=== PATIENT | female | born 1965 | race Caucasian/White ===

== ENCOUNTER 2018-06-17 02:12 | Emergency (ER) | payer BC, SELFPAY ==
[2018-06-17 02:13] VITALS: BP 181/97; PULSE 60; RESP 16; TEMP 36.7; O2SAT 96; BMI 28.2
--- NOTE | 2018-06-17 02:23 | ED.VISSUMM ---
- ER Visit Summary Date of Service: 06/17/18 Chief Complaint: Lump under right jaw History of Present Illness: The patient is a 52 F who awoke with a lump under her right jaw which scared her so she came here. She did take 2 Motrin and states the swelling has gone down. She otherwise is without complaint. No fevers chest pain shortness of breath nausea vomiting rashes headaches. Physical Examination: Afebrile blood pressure 181/97 vitals otherwise normal Moist mucous membranes Patient has severe gingivitis with ulcerative lesions especially along the right lower teeth and in particular of the right mandibular canine Patient has a mobile lymph node under the right mandible as well as some anterior cervical lymphadenopathy Heart regular rate and rhythm Test Results: Not indicated Emergency Department Course and Treatment: Patient's findings are consistent with acute necrotizing ulcerative gingivitis as well as reactive lymphadenopathy. She was given a dose of clindamycin here as well as a prescription for the same and was discharged home. I stressed the importance of follow-up with a dentist. She understands to return for new or worsening symptoms and was discharged home. Treatment Plan: [] Disposition: Discharge Impression: Acute necrotizing ulcerative gingivitis Reactive lymphadenopathy This note was generated with onefinestay dictation software. It may contain incorrect words, spelling, and punctuation that were not noted in review of the chart prior to signing ED Disposition - Plan for ED Patient: Referrals: Marty Lewis MD [Primary Care Provider] -
--- NOTE | 2018-06-17 02:26 | ED.DEP ---
ED Disposition - Plan for ED Patient: Instructions: ED Trench Mouth Prescriptions: Clindamycin [Cleocin] 300 mg PO TID #60 cap Referrals: Marty Lewis MD [Primary Care Provider] -
[2018-06-17] MEDS: Clindamycin HCl 150 MG Capsule 300 MG PO (02:44)
[2018-06-17 02:45] VITALS: RESP 16
== END 2018-06-17 02:45 | disposition home or self-care (01) ==
LOC: ED 02:33
PROVIDERS: Emergency Provider Emergency Medicine; Family Provider Family Medicine; PCP Family Medicine
DX: A69.1 Other Vincent's infections (principal); R59.0 Localized enlarged lymph nodes; I10 Essential (primary) hypertension; Z72.0 Tobacco use
CPT/HCPCS: 99283

== ENCOUNTER 2020-02-18 09:59 | Emergency (ER) | payer BC, SELFPAY ==
[2020-02-18 09:59] VITALS: BP 141/73; PULSE 65; RESP 17; TEMP 36.1; O2SAT 97; BMI 25.9
--- NOTE | 2020-02-18 10:10 | CT_ITS ---
STUDY: CT BRAIN WITHOUT CONTRAST REASON FOR EXAM: Female, 54 years old. HEADACHE WITH NAUSEA AND VOMITING STARTED TUESDAY RADIATION DOSAGE (If Supplied By Facility): CTDIvol = ( 44.99 ) mGy, DLP = ( 779.24 ) mGycm TECHNIQUE: Transaxial CT imaging of the brain was performed without administration of intravenous contrast material. Individualized dose optimization techniques were used for this CT. COMPARISON: Comparison is made with prior study dated 02/10/2016. FINDINGS: Normal soft tissue structures. Normal calvarium. Once again, there is mild degree of predominantly frontal cerebral atrophy with widening of the extra-axial spaces. Normal white matter tracts of the cerebral hemispheres. Normal basal ganglia and thalami. Normal brainstem. There is mild cerebellar atrophy. There is no intracranial hemorrhage. There are no findings of an acute ischemic infarction. Normal visualized paranasal sinuses. CT/Brain/Head without Contrast IMPRESSION: Chronic involutional changes of the brain. Stable examination. Electronically Signed: Horace Smiley, at 11:40 EST , Service support ,
--- NOTE | 2020-02-18 10:11 | EKG12_ITS ---
Test Reason : HEADACHE Blood Pressure : / mmHG Vent. Rate : 050 BPM Atrial Rate : 050 BPM P-R Int : 136 ms QRS Dur : 100 ms QT Int : 478 ms P-R-T Axes : 049 038 095 degrees QTc Int : 435 ms Sinus bradycardia Nonspecific ST and T wave abnormality Abnormal ECG Confirmed by KANDI MURRY, TORREY ([id number]), order editor VINOD ACKERMAN ([id number]) on 02/20/2020 8:13:21 AM Referred By: ARNEL Confirmed By:TORREY CHAU MD
--- NOTE | 2020-02-18 10:12 | CT_ITS ---
STUDY: CT CERVICAL SPINE WITHOUT CONTRAST REASON FOR EXAM: Female, 54 years old. HEADACHE,N/V X 4 DAYS RADIATION DOSAGE (If Supplied By Facility): CTDIvol = ( 17.91 ) mGy, DLP = ( 336.47 ) mGycm TECHNIQUE: High resolution transaxial imaging was performed without contrast material. Sagittal and coronal images were reconstructed. Individualized dose optimization techniques were used for this CT. COMPARISON: None FINDINGS: Normal craniovertebral junction. Normal anterior atlantoaxial articulation. Normal odontoid process. There is straightening of the normal cervical lordosis. Normal vertebral bodies and posterior osseous elements. C2-3: Normal endplates. Normal disc height and morphology. Normal central canal and intervertebral neuroforamina. C3-4: Normal endplates. Normal disc height and morphology. Normal central canal and intervertebral neuroforamina. C4-5: Mild degree of disc space narrowing. Anterior spondylosis. Uncovertebral arthrosis. C5-6: Mild degree of disc space narrowing. Spondylosis. Mild degree of the uncovertebral arthrosis. C6-7: Normal endplates. Normal disc height and morphology. Normal central canal and intervertebral neuroforamina. C7-T1: Normal endplates. Normal disc height and morphology. Normal central canal and intervertebral neuroforamina. Calcification of the carotid bifurcations bilaterally. CT/Spine Cervical without Contras IMPRESSION: Multilevel degenerative changes, as described above. Electronically Signed: Horace Smiley, at 11:17 EST , Service support ,
--- NOTE | 2020-02-18 10:18 | ED.VIS.GEN ---
History of Present Illness Chief Complaint: Headache Informant: Patient Narrative: 54-year-old female with past medical history of hypertension presents with headache. States it has been intermittent for the past 4 days. States it is left-sided and radiates from the front to the occipital region. States that she has had intermittent nausea with some vomiting. States she also has pain in her left shoulder and neck. Radiates down her left arm. States this is aching and intermittent. Somewhat worse with movement. Denies any fever, chills, cough, vision change, head injury. States that she does have a remote history of migraines but has not had one for some time. Is not currently on prophylactic medication for this issue. Past Medical History - Allergies and Home Meds Allergies/Adverse Reactions: Allergies cephalexin monohydrate [From Keflex] Allergy (Mild, Verified 02/18/20 09:59) Rash acetaminophen [From Percocet] Allergy (Verified 02/18/20 09:59) Rash hydrocodone bitartrate [From Vicodin] Allergy (Verified 02/18/20 09:59) Rash oxycodone HCl [From Percocet] Allergy (Verified 02/18/20 09:59) Rash Primary Care Physician: Marty Lewis MD [Primary Care Provider] - Prior records reviewed: Yes Past Medical History: - - HTN Surgical History: - - ablation Lives: Spouse/ Significant Other Smoking Status: Current every day smoker Alcohol: None Drugs: None Review of Systems General: Denies: Chills, Fever, Sweats Eyes: Denies: Visual changes - bilaterally, Diplopia ENT: Denies: Rhinorrhea, Sore throat Cardiovascular: Denies: Chest pain, Palpitations Respiratory: Denies: Dyspnea, Cough, Dyspnea on exertion Gastrointestinal: Denies: Abdominal pain, Nausea, Vomiting, Diarrhea, Melena, Hematochezia Genitourinary: Denies: Dysuria, Hematuria, Frequency Musculoskeletal: Reports: Myalgias, Arthralgias, Neck pain. Denies: Back pain, Extremity Pain Skin: Denies: Rash, Wounds Neurological: Reports: Headache. Denies: Weakness, Numbness Physical Exam Vital Signs/Narrative: Vital Signs Temp Pulse Resp BP Pulse Ox 02/18/20 09:59 96.9 F L 65 17 141/73 H 97 Inital Vital Signs reviewed: Yes General: Well nourished, Well developed, No Acute Distress Head: Normocephalic, Atraumatic Eyes: Perrl, EOMI ENT: Moist mucous membranes, No rhinorrhea Neck: Supple, Nontender, - - Left paracervical TTP with muscle spasm. Cardiovascular: Regular rate, Regular rhythm, No murmurs Respiratory: No distress, CTA bilaterally, Chest nontender Abdomen: Soft, Nontender, Nondistended, Normal bowel sounds Back: Nontender, Normal Inspection Extremities: Nontender, No edema Skin: Normal color, No rash Neurological: Alert, Oriented x3, Cranial nerves II-XII grossly intact, Normal Strength, Normal Sensation Psychological: Normal affect, Normal Mood Diagnostic/Tx/Re-eval Chest X-Ray - ED: 1 View, 2 View, Read by ED Physician, Read by Radiologist, Normal Clinical Impression(s) from Imaging Studies Brain CT 02/18/20 10:10 IMPRESSION: Chronic involutional changes of the brain. Stable examination. Electronically Signed: Horace Smiley, at 11:40 EST , Service support , Cervical Spine CT 02/18/20 10:12 IMPRESSION: Multilevel degenerative changes, as described above. Electronically Signed: Horace Smiley, at 11:17 EST , Service support , Chest X-Ray 02/18/20 11:09 IMPRESSION: Normal x-ray examination of the chest. Electronically Signed: Horace Smiley, at 11:20 EST , Service support , Laboratory Data 02/18/20 02/18/20 02/18/20 10:19 10:25 10:25 WBC 4.7 RBC 4.12 L Hgb 14.9 Hct 42.8 MCV 103.9 H MCH 36.2 H MCHC 34.8 RDW Std Deviation 45.4 H RDW Coeff of Daron 11.8 Plt Count 62 L MPV 11.3 Immature Gran % (Auto) 0.200 Neut % (Auto) 51.2 Lymph % (Auto) 38.3 [place] % (Auto) 8.2 Eos % (Auto) 1.7 Baso % (Auto) 0.4 Absolute Neuts (auto) 2.4 Absolute Lymphs (auto) 1.78 Nucleated RBC % 0 Sodium 138 Potassium 2.9 L Chloride 101 Carbon Dioxide 32.0 Anion Gap 5 BUN 10 Creatinine 0.63 Estim Creat Clear Calc 90.20 Est GFR (MDRD) Af Amer 127 Est GFR (MDRD) Non-Af 105 BUN/Creatinine Ratio 15.8 Glucose 142 H Calcium 8.0 L Magnesium Total Bilirubin 0.80 AST 128 H ALT 128 H Alkaline Phosphatase 105 Troponin I < 0.015 Total Protein 7.2 Albumin 3.1 L Globulin 4.1 Albumin/Globulin Ratio 0.8 L Urine Color Yellow Urine Clarity Clear Urine pH 8.0 Ur Specific [place] 1.010 Urine Protein 15 H Urine Glucose (UA) Normal Urine Ketones 5 H Urine Occult Blood Negative Urine Nitrite Negative Urine Bilirubin 1 H Urine Urobilinogen 4 H Ur Leukocyte Esterase 100 H Urine RBC 0 SEEN Urine WBC 0-5 SEEN Ur Squamous Epith Cells 10-25 SEEN Urine Bacteria 1+ Urine Mucus 2+ 02/18/20 10:25 WBC RBC Hgb Hct MCV MCH MCHC RDW Std Deviation RDW Coeff of Daron Plt Count MPV Immature Gran % (Auto) Neut % (Auto) Lymph % (Auto) [place] % (Auto) Eos % (Auto) Baso % (Auto) Absolute Neuts (auto) Absolute Lymphs (auto) Nucleated RBC % Sodium Potassium Chloride Carbon Dioxide Anion Gap BUN Creatinine Estim Creat Clear Calc Est GFR (MDRD) Af Amer Est GFR (MDRD) Non-Af BUN/Creatinine Ratio Glucose Calcium Magnesium 2.1 Total Bilirubin AST ALT Alkaline Phosphatase Troponin I Total Protein Albumin Globulin Albumin/Globulin Ratio Urine Color Urine Clarity Urine pH Ur Specific [place] Urine Protein Urine Glucose (UA) Urine Ketones Urine Occult Blood Urine Nitrite Urine Bilirubin Urine Urobilinogen Ur Leukocyte Esterase Urine RBC Urine WBC Ur Squamous Epith Cells Urine Bacteria Urine Mucus - Rhythm Strip Rhythm Strip: Sinus bradycardia Rate: 50 Ectopy: None - EKG Initial EKG Interpretation: Sinus Bradycardia - Sinus bradycardia 50 bpm. WA interval of 136 ms. QTC of [address] changes. Flattened T waves. No significant change from previous on 02/10/2016. - Medical Decision Making Patient appears well and nontoxic. No focal neurologic deficit. No signs of meningismus. CT head and neck negative. Chest x-ray interpreted by myself shows no significant cardiomegaly or infiltrates. Radiology concurs. Lab work does show a hypokalemia which was replaced by mouth and will be given potassium replacement at home. Patient was given Toradol and cyclobenzaprine for a likely musculoskeletal neck pain. Patient will be given these medications for home. Asked to return for new or worsening symptoms. Asked to follow-up with primary care. Patient agreeable and discharged home in stable condition. Impression: 1. Headache 2. Cervicalgia 3. Hypokalemia ED Disposition - Plan for ED Patient: Disposition: Home or Assisted Living Instructions: ED Headache Unspecified Prescriptions: cycloBENZAPRine HCl [Flexeril] 5 mg PO TID PRN #10 tab PRN Reason: Muscle Spasm Prescription Printed Naproxen [Naprosyn] 500 mg PO BID #14 tab Prescription Printed Potassium Chloride 20 meq PO DAILY #5 tab.er.prt Prescription Printed Referrals: Marty Lewis MD [Primary Care Provider] - 2 Days
[2020-02-18 10:27] LABS: Red Blood Cells-Urine 0 SEEN /hpf (0-5)
[2020-02-18 10:31] LABS: Color, Urine Yellow (Yellow); Glucose, Dipstick Normal (Normal); Ketone-Dipstick 5 mg/dl (Negative); Leukocyte Esterase-Dipstick 100 /ul (Negative); Nitrite-Dipstick Negative (Negative); Occult Blood-Urine Negative /ul (Negative); Protein-Dipstick 15 mg/dl (Negative); Urine Clarity Clear (Clear); Urine Urobilinogen 4 mg/dl (Normal)
[2020-02-18 10:37] LABS: Absolute Lymphocyte Count 1.78 X10^3/uL (0.83-4.51); Absolute Neutrophil Count 2.4 X10^3/uL (2.0-7.7); Basophil# 0.02 X10^3/uL; Basophil% 0.4 % (0-1); Eosinophil# 0.08 X10^3/uL; Eosinophils% 1.7 % (0-5); Hematocrit 42.8 % (37-47); Hemoglobin 14.9 g/dL (12.0-15.0); Lymphocyte # 1.78 X10^3/ul (4.0); Lymphocyte % 38.3 % (19-41); Mean Corp Hgb Conc 34.8 g/dL (32-36); Mean Corpuscular Hgb 36.2 pg (27.0-32.0); Mean Corpuscular Volume 103.9 fL (81-99); Mean Platelet Vol. 11.3 fl (6.2-12.0); Monocyte# 0.38 X10^3/uL; Monocyte% 8.2 % (0-10); NRBC Flagged by Analyzer 0 % (0-5); Neutrophil # 2.38 X10^3/uL (2.7-7.7); Neutrophil % 51.2 % (47-70); POSITIVE COUNT YES; Platelet Count 62 K/mm3 (150-450); RBC Distribution Width CV 11.8 % (11.6-14.6); RBC Distribution Width SD 45.4 fl (35.1-43.9); Red Blood Count 4.12 M/mm3 (4.2-5.4); White Blood Count 4.7 K/mm3 (4.4-11.0)
[2020-02-18 10:42] LABS: Urine Bilirubin Dipstick 1 mg/dL (Negative)
[2020-02-18 10:48] LABS: Bacteria 1+ /hpf (None Seen); Mucous, Urine 2+ /hpf (<or=2+); Squamous Epithelial Cells - UA 10-25 SEEN /hpf (5-10); White Blood Cells 0-5 SEEN /hpf (0-5)
[2020-02-18] MEDS: Ondansetron 4 MG/2 ML Vial IV (10:50)
[2020-02-18 10:51] LABS: ALB/GLOB Ratio 0.8 RATIO (0.9-2.4); AST(SGOT) 128 U/L (15-37); Alanine Aminotransfer ALT/SGPT 128 U/L (13-56); Albumin, Serum 3.1 g/dL (3.2-5.0); Alkaline Phosphatase 105 U/L (45-117); Anion Gap 5 (5-15); BUN 10 mg/dL (7-18); BUN/Creat Ratio 15.8 RATIO (10-20); Chloride 101 mmol/L (98-107); Creatinine, Serum 0.63 mg/dL (0.55-1.02); EST Glomerular Filtration Rate 105 mL/min (>60); Est Glom Filt Rate - Afr Amer 127 mL/min (>60); Globulin 4.1 g/dL (2.2-4.2); Glucose 142 mg/dL (74-106); Potassium 2.9 mmol/L (3.5-5.1); Protein, Total 7.2 g/dL (6.4-8.2); Sodium Level 138 mmol/L (136-145)
--- NOTE | 2020-02-18 11:09 | RAD_ITS ---
STUDY: X-RAY CHEST REASON FOR EXAM: Female, 54 years old. Pt c/o headache, nausea, vomiting started 3 days ago TECHNIQUE: Single AP portable view of the chest. COMPARISON: Comparison is made with prior study dated 02/10/2016. FINDINGS: EKG electrodes are seen. The lungs are clear and expanded. There is no demonstrated pleural abnormality. Normal size heart. Normal mediastinum and ahsan. Normal visualized pulmonary arteries. There is atherosclerotic calcification of the aortic arch with tortuosity. There are mild degenerative changes of the visualized thoracic spine. Normal visualized ribs, clavicles, and shoulders. There is no demonstrated abnormality of the visualized soft tissue structures of the upper abdomen. RAD/Chest 1 View (Portable) IMPRESSION: Normal x-ray examination of the chest. Electronically Signed: Horace Smiley, at 11:20 EST , Service support ,
[2020-02-18 11:22] LABS: Magnesium 2.1 mg/dL (1.6-2.6)
[2020-02-18] MEDS: Ketorolac 15 MG/ML Vial IV (12:19)
[2020-02-18 12:21] VITALS: BP 128/95; PULSE 51; RESP 14; O2SAT 97
[2020-02-18 12:46] VITALS: BP 138/95; PULSE 50; RESP 16; O2SAT 96
[2020-02-18] MEDS: cycloBENZAPRine HCl 5 MG TABLET PO (12:46)
== END 2020-02-18 12:53 | disposition home or self-care (01) ==
PROVIDERS: Emergency Provider Emergency Medicine; PCP Family Medicine
DX: R51.9 Headache, unspecified (principal); M54.2 Cervicalgia; E87.6 Hypokalemia; I10 Essential (primary) hypertension; F17.200 Nicotine dependence, unspecified, uncomplicated
CPT/HCPCS: 70450; 71045; 72125; 80053; 81001; 83735; 84484; 85025; 87635; 93005; 96374; 96375; 99285; U0005; A4216; J2405; U0003

== ENCOUNTER 2021-07-15 21:02 | Emergency (ER) | payer BC, SELFPAY ==
[2021-07-15 21:03] VITALS: BP 135/95; PULSE 82; RESP 18; TEMP 36.1; O2SAT 95; BMI 27.4
--- NOTE | 2021-07-15 21:13 | CT_ITS ---
STUDY: CT ABDOMEN AND PELVIS WITHOUT CONTRAST REASON FOR EXAM: Female, 55 years old. abd/back pain RADIATION DOSAGE (If Supplied By Facility): CTDIvol = ( 9.29 ) mGy, DLP = ( 452.49 ) mGycm TECHNIQUE: Transaxial images were obtained from the dome of the diaphragm to the symphysis pubis without oral contrast, and without intravenous contrast. Sagittal and coronal images were reconstructed. Individualized dose optimization techniques were used for this CT. COMPARISON: None. FINDINGS: There is minor atelectasis within the dependent portion of the lungs.. The visualized portions of the heart are within normal limits. Normal liver. Tiny hyperattenuated foci within the distended gallbladder possibly representing polyps or poorly calcified stones.. Normal spleen. Normal pancreas. Normal bilateral adrenal glands. Normal right kidney. Normal left kidney. Normal visualized stomach. Nonspecific ileus with diffuse fecal retention in the colon. No evidence for small bowel obstruction.. Diverticular changes of the colon without evidence for acute diverticulitis Appendix not visualized consistent with appendectomy Atherosclerotic changes of the aorta without evidence for aneurysm. Normal inferior vena cava. Normal retroperitoneum. Incompletely distended thick-walled bladder likely of no significance Normal abdominal wall. Normal osseous structures. CT/Abdomen/Pelvis without Cont IMPRESSION: Mildly distended gallbladder with tiny polyps or poorly calcified stones. Ultrasound would be helpful for further evaluation if clinically warranted Nonspecific ileus with diffuse fecal retention in colon. Diverticular changes of colon without evidence for acute diverticulitis Electronically Signed: Mahendra Murray MD at 22:32 EDT ,
--- NOTE | 2021-07-15 21:15 | EDS_ITS ---
HPI History of Present Illness Chief Complaint: General Illness Informant: patient Onset/Context/Timing Onset: Month(s) Narrative Narrative: Presents with multiple complaints. She complains of intermittent back and abdominal pain over the past 3 months. She states she will occasionally feel nauseated and have vomiting. She will occasionally have diarrhea. She complains of not being able to eat chicken, hamburger, or pork over the past 3 months because it does not taste right. She states that her eyes feel itchy. All symptoms have been ongoing for months. She has not seen her physician about this. She states she has been going to [facility] who is doing biopsies of her cervix. She does admit to recently being on an antibiotic for UTI. She is not sure if the symptoms are resolved or not. PFSH PFSH Medical History no medical history no medical history Home Medications hydrochlorothiazide 25 mg PO DAILY #30 tablet 05/17/14 [Rx Last Taken Unknown] Potassium Chloride 20 meq PO DAILY #5 tab.er.prt 02/18/20 [Rx Last Taken Unknown] celecoxib 200 mg PO DINNER 02/18/20 [History Last Taken Unknown] cyclobenzaprine 5 mg PO TID PRN #10 tab 02/18/20 [Rx Last Taken Unknown] naproxen 500 mg PO BID #14 tab 02/18/20 [Rx Last Taken Unknown] polyethylene glycol 3350 [Miralax] 17 g PO DAILY #119 g 07/15/21 [Rx Last Taken Unknown] Allergy/AdvReac Type Severity Reaction Status Date / Time cephalexin monohydrate Allergy Mild Rash Verified 07/15/21 21:05 [From Keflex] acetaminophen [From Percocet] Allergy Rash Verified 07/15/21 21:05 hydrocodone bitartrate Allergy Rash Verified 07/15/21 21:05 [From Vicodin] oxycodone HCl [From Percocet] Allergy Rash Verified 07/15/21 21:05 Surgical History History of appendectomy Social History Smoking Status: Current every day smoker tobacco type: cigarettes ROS ROS ED Constitutional Constitutional ED: Denies chills or fever(s) Eyes Eyes: Reports other Details: Itchy eyes ; Denies change in vision ENT ENT ED: Denies sore throat Cardiovascular Cardiovascular: Denies chest pain Respiratory/Chest Respiratory/Chest: Denies cough or dyspnea Gastrointestinal Gastrointestinal: Reports abdominal pain, diarrhea, nausea and vomiting Genitourinary Genitourinary ED: Denies dysuria Musculoskeletal Musculoskeletal: Reports back pain Integumentary Denies rash Neurologic Neurologic: Denies headache(s) or weakness Allergic/Immunologic Allergic/Immunologic ED: Denies urticaria EXAM Physical Exam Const Vital Signs: 07/15/21 21:03 07/15/21 21:51 Temperature 97 F L Temperature Source Temporal Pulse Rate 82 Respiratory Rate 18 Respiratory Effort Normal Blood Pressure 135/95 H Blood Pressure Mean 108 Pulse Ox 95 Oxygen Delivery Method Room Air Positive well nourished and well developed General Appearance ED: well developed HEENT Reports moist mucous membranes Eyes PERRL and EOMs intact bilaterally Neck supple Chest Wall inspection of chest normal and palpation of chest normal Resp normal respiratory effort and clear to auscultation bilaterally Cardio regular rate and regular rhythm GI normal to inspection, nondistended, normoactive bowel sounds and non-tender Palpation: soft Back/Spine Back/Spine Narrative: No reproducible thoracic or lumbar tenderness. No CVA tenderness. Extremity normal to inspection Neuro oriented x3 Sensorium / Orientation: alert Psych mental status grossly normal Skin no rashes or lesions noted MDM MDM MDM Narrative Medical decision making narrative: Patient is given Toradol and IV fluids. Lab work, urinalysis, CT flank obtained. COVID swab ordered. Lab Data Attestation: I reviewed the patient's lab results. Labs: Laboratory Results - last 24 hr 07/15/21 07/15/21 07/15/21 21:40 21:40 21:50 WBC 3.9 L RBC 4.12 L Hgb 14.8 Hct 41.9 MCV 101.7 H MCH 35.9 H MCHC 35.3 RDW Std Deviation 45.3 H RDW Coeff of Daron 12.0 Plt Count 62 L MPV 10.9 Immature Gran % (Auto) 0.300 Neut % (Auto) 50.4 Lymph % (Auto) 37.8 [place] % (Auto) 9.2 Eos % (Auto) 1.8 Baso % (Auto) 0.5 Absolute Neuts (auto) 2.0 Absolute Lymphs (auto) 1.48 Nucleated RBC % 0 Platelet Estimate MOD DEC Plt Morphology Comment LARGE RBC Morphology N CHROM Anisocytosis RARE Macrocytosis RARE Sodium 137 Potassium 3.1 L Chloride 100 Carbon Dioxide 33.0 H Anion Gap 4 L BUN 6 L Creatinine 0.45 L Estim Creat Clear Calc 124.85 Est GFR (MDRD) Af Amer 186 Est GFR (MDRD) Non-Af 154 BUN/Creatinine Ratio 13.3 Glucose 105 Calcium 8.2 L Total Bilirubin 1.20 H Direct Bilirubin 0.51 H AST 90 H ALT 70 H Alkaline Phosphatase 100 Total Protein 7.0 Albumin 2.9 L Globulin 4.1 Urine Color Yellow Urine Clarity Clear Urine pH 7.0 Ur Specific [place] 1.005 Urine Protein Negative Urine Glucose (UA) Normal Urine Ketones Negative Urine Occult Blood Negative Urine Nitrite Negative Urine Bilirubin Negative Urine Urobilinogen Normal Ur Leukocyte Esterase Negative Urine RBC 0 SEEN Urine WBC 0 SEEN Ur Squamous Epith Cells 0-5 SEEN Urine Bacteria 1+ Urine Mucus 0 SEEN Rapid COVID: Negative Radiography Diagnostic Testing: Clinical Impression(s) from Imaging Studies Abdomen/Pelvis CT 07/15/21 21:13 IMPRESSION: Mildly distended gallbladder with tiny polyps or poorly calcified stones. Ultrasound would be helpful for further evaluation if clinically warranted Nonspecific ileus with diffuse fecal retention in colon. Diverticular changes of colon without evidence for acute diverticulitis Electronically Signed: Mahendra Murray MD at 22:32 EDT , Treatment and Re-Evaluation Narrative: Repeat evaluation patient resting comfortably. CBC reveals mildly low white count at 3.9. Platelet count is low at 62,000 but this is consistent with her prior values. Chemistry studies significant for potassium of 3.1. Total bili is 1.2, direct bili 0.51, AST 90, ALT 71. LFTs are elevated, but slightly improved when compared to prior values. Urinalysis reveals no acute infection. CT flank reveals mildly distended gallbladder. She has no focal tenderness to this area. Nonspecific ileus with diffuse fecal retention is noted. I will write her for MiraLAX to help clean her out. I did recommend she follow-up with her PCP for further evaluation. She will be given a work note for today only. Discharge Plan Triage Chief Complaint: General Illness ED Provider: Suyapa Bobby Dx/Rx/DC Orders Clinical Impression: Abdominal pain, Hypokalemia, Constipation Instructions: ED Constipation (Adult), ED Pain, Acute, Uncertain Cause Prescriptions: New polyethylene glycol 3350 [Miralax] 17 gram/dose powder 17 g PO DAILY Qty: 119 RF: 0 No Action hydrochlorothiazide 25 MG tablet 25 mg PO DAILY Qty: 30 RF: 0 celecoxib 100 MG capsule 200 mg PO DINNER RF: 0 Potassium Chloride 20 MEQ Tab.Er.Prt 20 meq PO DAILY Qty: 5 RF: 0 cyclobenzaprine 10 MG tablet 5 mg PO TID PRN (Reason: Muscle Spasm) Qty: 10 RF: 0 naproxen 500 MG tablet 500 mg PO BID Qty: 14 RF: 0 Stand Alone Forms: ED Work / School Excuse Primary Care Provider: Marty Lewis Referrals: Marty Lewis MD [Primary Care Provider] - 1-2 Weeks Disposition Disposition: Home, Self Care
[2021-07-15] MEDS: 0.9% Normal Saline 1,000 ML 150 ML IV (21:41)
[2021-07-15] MEDS: Ketorolac 30 MG/ML Syringe IV (21:41)
[2021-07-15 21:56] LABS: Mucous, Urine 0 SEEN /hpf (<or=2+); Red Blood Cells-Urine 0 SEEN /hpf (0-5); White Blood Cells 0 SEEN /hpf (0-5)
[2021-07-15 22:07] LABS: Absolute Lymphocyte Count 1.48 X10^3/uL (0.83-4.51); Basophil# 0.02 X10^3/uL; Basophil% 0.5 % (0-1); Eosinophil# 0.07 X10^3/uL; Eosinophils% 1.8 % (0-5); Hematocrit 41.9 % (37-47); Hemoglobin 14.8 g/dL (12.0-15.0); Lymphocyte # 1.48 X10^3/ul (0.83-4.51); Lymphocyte % 37.8 % (19-41); Mean Corp Hgb Conc 35.3 g/dL (32-36); Mean Corpuscular Hgb 35.9 pg (27.0-32.0); Mean Corpuscular Volume 101.7 fL (81-99); Mean Platelet Vol. 10.9 fl (6.2-12.0); Monocyte# 0.36 X10^3/uL; Monocyte% 9.2 % (0-10); NRBC Flagged by Analyzer 0 % (0-5); Neutrophil # 1.98 X10^3/uL (2.7-7.7); Neutrophil % 50.4 % (47-70); POSITIVE COUNT YES; Platelet Count 62 K/mm3 (150-450); RBC Distribution Width SD 45.3 fl (35.1-43.9); Red Blood Count 4.12 M/mm3 (4.2-5.4); White Blood Count 3.9 K/mm3 (4.4-11.0)
[2021-07-15 22:08] LABS: Differential Indicated SCAN CRITERIA MET
[2021-07-15 22:10] LABS: Color, Urine Yellow (Yellow); Glucose, Dipstick Normal (Normal); Ketone-Dipstick Negative (Negative); Leukocyte Esterase-Dipstick Negative /ul (Negative); Nitrite-Dipstick Negative (Negative); Occult Blood-Urine Negative /ul (Negative); Protein-Dipstick Negative (Negative); Specific Gravity, Urine 1.005 (1.002-1.030); Urine Bilirubin Dipstick Negative (Negative); Urine Clarity Clear (Clear); Urine Urobilinogen Normal (Normal)
[2021-07-15 22:11] LABS: AST(SGOT) 90 U/L (15-37); Alanine Aminotransfer ALT/SGPT 70 U/L (13-56); Albumin, Serum 2.9 g/dL (3.2-5.0); Alkaline Phosphatase 100 U/L (45-117); BUN 6 mg/dL (7-18); BUN/Creat Ratio 13.3 RATIO (10-20); Bilirubin, Direct 0.51 mg/dL (0.00-0.30); Calcium,Total 8.2 mg/dL (8.5-10.1); Chloride 100 mmol/L (98-107); Creatinine, Serum 0.45 mg/dL (0.55-1.02); EST Glomerular Filtration Rate 154 mL/min (>60); Est Glom Filt Rate - Afr Amer 186 mL/min (>60); Estimated Creatinine Clearance 124.85 ml/min; Globulin 4.1 g/dL (2.2-4.2); Glucose 105 mg/dL (74-106); Potassium 3.1 mmol/L (3.5-5.1); Sodium Level 137 mmol/L (136-145)
[2021-07-15 22:12] LABS: Anion Gap 4 (5-15)
[2021-07-15 22:21] LABS: Squamous Epithelial Cells - UA 0-5 SEEN /hpf (5-10)
[2021-07-15 22:22] LABS: Bacteria 1+ /hpf (None Seen)
[2021-07-15 22:28] LABS: Anisocytosis RARE; Macrocytosis RARE; Platelet Estimate MOD DEC (ADEQ); Platelet Morphology LARGE; Red Cell Morphology N CHROM NORMAL (NORM C&C)
[2021-07-15] MEDS: Potassium Chloride Oral Tablet 20 MEQ 40 MEQ PO (22:37)
[2021-07-15 22:46] VITALS: PULSE 57; RESP 15; O2SAT 98
== END 2021-07-15 23:06 | disposition home or self-care (01) ==
PROVIDERS: Emergency Provider Emergency Medicine; PCP Family Medicine; Visit Provider Emergency Medicine
DX: K59.00 Constipation, unspecified (principal); E87.6 Hypokalemia; F17.210 Nicotine dependence, cigarettes, uncomplicated
CPT/HCPCS: 74176; 80048; 80076; 81001; 85025; 87811; 96361; 96374; 99283; J7030

== ENCOUNTER → 2021-07-30 | Outpatient (CLI) | payer BC, SELFPAY ==
--- NOTE | 2021-07-30 06:10 | EKG12_ITS ---
Test Reason : PREOP Blood Pressure : / mmHG Vent. Rate : 069 BPM Atrial Rate : 069 BPM P-R Int : 136 ms QRS Dur : 084 ms QT Int : 420 ms P-R-T Axes : 049 033 118 degrees QTc Int : 450 ms Normal sinus rhythm T wave abnormality, consider anterolateral ischemia Abnormal ECG Confirmed by KANDI MURRY, TORREY ([id number]), technical writer and editor VINOD ACKERMAN ([id number]) on 08/03/2021 8:40:21 AM Referred By: Barby Gayle Confirmed By:TORREY CHAU MD
[2021-07-30 06:39] VITALS: BP 121/88; PULSE 71; RESP 20; TEMP 36.7; O2SAT 97; BMI 27.3
[2021-07-30 06:39] LABS: Hemoglobin 15.4 g/dL (12.0-15.0); Mean Corpuscular Hgb 35.7 pg (27.0-32.0); Mean Corpuscular Volume 102.1 fL (81-99); Mean Platelet Vol. 11.2 fl (6.2-12.0); POSITIVE COUNT YES; Platelet Count 59 K/mm3 (150-450); RBC Distribution Width CV 12.4 % (11.6-14.6); RBC Distribution Width SD 46.9 fl (35.1-43.9); Red Blood Count 4.31 M/mm3 (4.2-5.4); White Blood Count 5.5 K/mm3 (4.4-11.0)
[2021-07-30 06:45] LABS: International Normalized Ratio 1.2; Prothrombin Time (Protime)PT. 15.1 SECONDS (11.7-14.9)
[2021-07-30 06:46] LABS: Partial Thromboplast Time 33.2 Seconds (24.1-36.2)
[2021-07-30 06:50] LABS: Anion Gap 4 (5-15); BUN 8 mg/dL (7-18); BUN/Creat Ratio 16.2 RATIO (10-20); Calcium,Total 8.8 mg/dL (8.5-10.1); Chloride 109 mmol/L (98-107); EST Glomerular Filtration Rate 138 mL/min (>60); Est Glom Filt Rate - Afr Amer 167 mL/min (>60); Estimated Creatinine Clearance 112.36 ml/min; Glucose 98 mg/dL (74-106); Potassium 3.6 mmol/L (3.5-5.1); Sodium Level 140 mmol/L (136-145)
[2021-07-30] MEDS: Lactated Ringers 1,000 ML 15 ML IV (07:00)
== END | disposition home or self-care (01) ==
LOC: SDC 06:03 → PAT 08-18 14:12
PROVIDERS: PCP Family Medicine; Referring Provider Obstetrics & Gynecology; Visit Provider Obstetrics & Gynecology
DX: Z01.812 Encounter for preprocedural laboratory examination (principal); R94.31 Abnormal electrocardiogram [ECG] [EKG]
CPT/HCPCS: 80048; 85027; 85610; 85730; 86850; 86900; 86901; 93005; J7120